=== PATIENT | female | born 1975 | race Caucasian/White ===

== ENCOUNTER 2021-02-25 13:53 | Inpatient (IN) | payer OTHER | END 2021-02-28 18:55 | disposition home or self-care (01) | DRG 759 | LOC: O/R 02-28 05:30 → CIR.AMB 02-28 10:43 → EDSTATUS 02-28 10:45 → OB/GYN 02-28 10:45 → O/R 02-28 18:55 | PROVIDERS: ADMIT Obstetrics & Gynecology; ATTEND Obstetrics & Gynecology | DX: N70.91 Salpingitis, unspecified (principal); Z53.8 Procedure and treatment not carried out for other reasons; R10.2 Pelvic and perineal pain ==

== ENCOUNTER 2021-03-07 05:30 | Inpatient (IN) | payer OTHER | END 2021-03-07 13:15 | disposition home or self-care (01) | DRG 745 | LOC: O/R 05:30 → SURH 07:00 → O/R 13:15 → SURH 15:26 | PROVIDERS: ADMIT Obstetrics & Gynecology; ATTEND Obstetrics & Gynecology | PROC: 0UB74ZZ Excision of Bilateral Fallopian Tubes, Percutaneous Endoscopic Approach (ICD-10-PCS; principal; 2021-03-07 07:00) | DX: N70.91 Salpingitis, unspecified (principal); R10.2 Pelvic and perineal pain ==